=== PATIENT | male | born 1965 | race Caucasian/White ===

== ENCOUNTER 2016-08-07 20:01 | Emergency (ER) | payer OTHER ==
[~2016-08-07] VITALS: Ht 182.9 cm; Wt 100.6 kg
[~2016-08-07 20:01] MED LIST: COCO1OIL2 PO; MULT-506 PO
[2016-08-07 20:05] VITALS: Ht 182.9 cm; Wt 100.6 kg
[2016-08-07 21:05] VITALS: BP 138/81; PULSE 66; TEMP 37.2; O2SAT 98
--- NOTE | 2016-08-09 00:32 | EMERGENCY ROOM VISIT NOTE ---
ED Visit Note First contact with patient: 20:39 Chief Complaint: Left eye swelling. History of Present Illness: Mr. Chan is a 50-year-old white male who ambulates into the ED complaining of swelling of the left lower eyelid. Patient reports he noted mild swelling and redness last night over the left lower eyelid. Today he reports increasing pain, swelling and redness in the same area. He describes the pain as an achy sensation. He rates his discomfort 4/10. His pain is nonradiating. Pain worsens with palpation and sometimes with blinking. He has not identified any alleviating factors related to the pain. He has not taken any medications for pain prior to arrival at the hospital. Associated with his pain he reports he has noted some increasing redness of the conjunctiva on the inside of the lower eyelid and has had some mild blurry vision. He denies fevers, chills, sweats, skin other skin eruptions, other skin color changes, headache, decrease in vision, tearing, light sensitivity, vomiting, decreased appetite, recent trauma to the eye or face, previous significant eye diseases or surgeries. Review of Systems: As noted above in history of present illness. 5 body systems were reviewed and found to be negative as noted above. Past Medical History: Hypertension, status post unspecified lumbar surgery, unspecified shoulder surgery Current Medications: Patient denies. Allergies to Medications: Penicillin. Social History: Patient is not employed; he feels safe in his home environment; he admits to tobacco use and denies alcohol use. Physical Examination: Vital Signs: Date Time Temp Pulse Resp B/P Pulse Ox O2 Delivery O2 Flow Rate FiO2 08/07/16 21:05 37.2 66 16 138/81 98 08/07/16 21:04 66 16 138/81 98 Room Air 08/07/16 20:05 37.2 61 16 147/84 98 Room Air GENERAL: 50-year-old male in mild distress due to pain, nontoxic-appearing, afebrile and hemodynamically stable. NEUROLOGICAL: Awake, alert and oriented to person, place and time. Answering questions appropriately and following commands. Normal gait. Good hand eye coordination. No focal motor or sensory deficits. SKIN: Warm, dry and pink. Left Lower Eyelid: Mild erythema and edema predominantly over the lateral border of the eyelid. No lymphangitis. No palpable abscesses or foreign bodies. HEENT: Atraumatic and normocephalic. PERRLA. EOMI without nystagmus. No foreign bodies found under the eyelids are embedded in the cornea. Within the conjunctiva of the lower eyelid patient has an internal hordeolum with mild erythema. Anterior chamber is clear. Sclerae white and there is no drainage from the eye. No light sensitivity. Visual acuity: Right 20/20 without correction, Left 20/25 without correction. No local lymphadenopathy. ED Course: Patient is assessed as noted above. Patient was educated about tonight's findings and instructed on his treatment plan; he verbalizes understanding and agreement with this plan. Prior to discharge I offered the patient antibiotic coverage and he refused. Clinical Impression: Internal hordeolum of the left lower eyelid. Disposition: Patient discharged home in stable condition; prior to departure he was reassessed and subjectively reported he was feeling the same. Plan: Patient was encouraged to use ibuprofen or acetaminophen as needed for pain. Patient was encouraged to use cool compresses or small ice bag for swelling or warm compresses for comfort. Patient was encouraged to follow-up with his PCP or return to the ED for recheck in 48 hours. Patient was encouraged return the ED for worsening/uncontrolled swelling, uncontrolled pain, visual changes, fevers, worsening redness or any new/ concerning symptoms.
== END 2016-08-07 21:06 | disposition home or self-care (01) ==
LOC: C.EDB 20:03 → C.EDD 21:06
DX: H00.025 Hordeolum internum left lower eyelid (principal); I10 Essential (primary) hypertension

== ENCOUNTER 2016-10-04 18:07 | Emergency (ER) | payer OTHER ==
[~2016-10-04] VITALS: Ht 182.9 cm; Wt 101.4 kg
[2016-10-04 18:09] VITALS: BP 160/86; TEMP 36.9; Ht 182.9 cm; Wt 101.4 kg
--- NOTE | 2016-10-04 18:37 | DIAGNOSTIC IMAGING REPORT ---
LEFT FOOT 3 VIEWS HISTORY: Left foot pain and injury. COMPARISON: None. FINDINGS: There is no fracture or dislocation. Soft tissues are unremarkable. No radiopaque foreign bodies. The Lisfranc joint is aligned. IMPRESSION: No fractures. Electronically signed by: Rachid Monzon M.D. 10/04/2016 6:35 PM Dictated Date/Time: 10/04/2016 6:34 PM
[2016-10-04 19:34] VITALS: PULSE 75; O2SAT 99
--- NOTE | 2016-10-04 20:22 | EMERGENCY ROOM VISIT NOTE ---
History First contact with patient: 18:16 Chief Complaint: FOOT PAIN Stated Complaint: LEFT FOOT PAIN History of Present Illness The patient is a 50 year old male who presents to the Emergency Room with complaints of an injury to his left foot. He was pulling a log splitter earlier today when a log it was on the tongue fell off and landed on his foot. The patient was only wearing bed slippers the time. He reports that after the initial discomfort, the pain improves throughout the day until this evening when it significantly worsen. He rates his discomfort a 10 out of 10 with weightbearing. He denies any pain about the ankle or leg. He also denies any pain extending into the toes. Review of Systems 10 system review was performed and was negative except for pertinent positives and negatives as indicated in history of present illness Past Medical/Surgical History Medical Problems: (1) Acute respiratory failure (2) Back pain (3) Hypertension Nos (4) Unspecified Sleep Apnea Family History FH: hypertension Social History Smoking Status: Current Every Day Smoker Alcohol Use: none Drug Use: none Housing Status: lives alone Occupation Status: unemployed Current/Historical Medications No Active Prescriptions or Reported Meds Allergies Coded Allergies: Penicillins (Verified Allergy, Unknown, 08/07/16) Physical Exam Vital Signs Date Time Temp Pulse Resp B/P Pulse Ox O2 Delivery O2 Flow Rate FiO2 10/04/16 19:34 75 18 99 Room Air 10/04/16 18:09 36.9 82 18 160/86 98 Room Air Physical Exam CONSTITUTIONAL: Healthy and well nourished. Alert and oriented X 3 with positive affect. Patient does not appear in any acute distress on exam. HEENT: Normocephalic, atraumatic. Pupils equal, round and reactive. NECK: Full active range of motion without discomfort. MUSCULOSKELETAL: Examination of the left foot shows significant tenderness to palpation over the dorsum of the foot. He also has mild edema without abrasions or ecchymosis. No significantly worsening pain with subtalar motion. No focal tenderness to palpation of the calcaneus, Achilles tendon or ankle region. Pedal pulses are intact. INTEGUMENTARY: No rash or other significant dermatologic conditions noted. NEUROLOGIC: Left foot and toes are sensory intact. Medical Decision & Procedures ER Provider Diagnostic Interpretation: My interpretation of left foot x-rays does not show any acute fractures or dislocations. Radiologist report is as follows: LEFT FOOT 3 VIEWS HISTORY: Left foot pain and injury. COMPARISON: None. FINDINGS: There is no fracture or dislocation. Soft tissues are unremarkable. No radiopaque foreign bodies. The Lisfranc joint is aligned. IMPRESSION: No fractures. ED Course Patient history and physical exam were performed. Nurse's notes were reviewed. Shows of the left foot were normal. The patient was encouraged to ice and elevate the foot for swelling and pain. He was also dispensed crutches to remain limited weightbearing. He was instructed to alternate ibuprofen and Tylenol as needed for pain. He was instructed to follow-up with his family doctor or orthopedics if symptoms are not improving within the next 5-7 days. The patient refused any prescription analgesics, was happy with plan of care, and rated his pain a 6 out of 10 at the time of discharge. Medical Decision Impression Primary Impression: Contusion of left foot Departure Information Prescriptions No Active Prescriptions or Reported Meds Referrals Jocelyn Alonzo M.D. (PCP) Patient Instructions [facility] Problem Qualifiers Primary Impression: Contusion of left foot Encounter type: initial encounter Qualified Codes: S90.32XA - Contusion of left foot, initial encounter
== END 2016-10-04 19:34 | disposition home or self-care (01) ==
LOC: C.EDB 18:08 → C.EDD 19:34
DX: S90.32XA Contusion of left foot, initial encounter (principal); W22.8XXA Striking against or struck by other objects, initial encounter; I10 Essential (primary) hypertension; G47.30 Sleep apnea, unspecified; Z87.09 Personal history of other diseases of the respiratory system; Z82.49 Family history of ischemic heart disease and other diseases of the circulatory system; F17.210 Nicotine dependence, cigarettes, uncomplicated